=== PATIENT | male | born 1995 | race Caucasian/White ===

== ENCOUNTER 2017-11-22 18:07 | Emergency (ER) | payer BC ==
[~2017-11-22 18:07] MED LIST: ISOVUE-370 76%-LOCM 1 ML ONE
[2017-11-22 18:27] LABS: Bilirubin Negative (Negative); Blood, Urine Negative (Negative); Clarity CLEAR (Clear); Glucose, Urine (Dipstick) Negative (Negative); Leukocyte Negative (Negative); Nitrite Negative (Negative); Protein, Urine (Dipstick) Negative (Neg-Trace); Specific Gravity, Urine 1.021 (1.002-1.036); Urobilinogen 0.2 mg/dL (0.2-1.0)
[2017-11-22 18:49] LABS: #Basophils 0.1 thou/uL (0.0-0.2); #Eosinphils 0.1 thou/uL (0.0-0.7); #Lymphocytes 3.2 thou/uL (1.20-3.40); #Monocytes 0.5 thou/uL (0.11-0.59); #Neutrophils 4.2 thou/uL (1.40-6.50); %Basophils 0.7 % (0.0-1.0); %Eosinophils 0.9 % (0.0-10.0); %Monocytes 5.8 % (0.0-4.0); %Neutrophils 52.7 % (31.0-61.0); Hemoglobin 15.7 g/dL (14.0-18.0); Mean Corpuscular HGB CONC 33.7 g/dL (32.0-36.0); Mean Corpuscular Hemoglobin 30.3 pg (25.0-35.0); Mean Corpuscular Volume 89.9 fl (77.0-87.0); Mean Platelet Volume 7.1 fL (7.4-10.4); Platelet Count 207 thou/uL (130-400); RBC Distribution Width 11.9 % (11.5-14.5); Red Blood Cell (RBC) Count 5.19 mill/uL (4.00-5.20); White Blood Cell (WBC) Count 7.9 thou/uL (4.8-10.8)
[2017-11-22 19:13] LABS: ALT (SGPT) 21 U/L (8-55); AST (SGOT) 16 U/L (10-45); Albumin 4.4 g/dL (3.5-5.0); Alkaline Phosphatase 78 U/L (Less than 750); Anion Gap 6 mmol/L (10-20); BUN (Urea Nitrogen) 22 mg/dL (8.4-21.0); Bilirubin, Total 0.5 mg/dL (0.2-1.2); Calc. Creatinine Clearance 0 mL/min (70-130); Calcium 9.2 mg/dL (7.8-10.44); Carbon Dioxide 31 mmol/L (22-29); Chloride 105 mmol/L (98-107); Estimated GFR-MDRD 71; Globulin 2.6 g/dL (2.4-3.5); Glucose 98 mg/dL (70-105); Lipase 43 U/L (8-78); Potassium 4.1 mmol/L (3.5-5.1); Sodium 138 mmol/L (136-145)
--- NOTE | 2017-11-22 20:07 | CT ---
CT ABDOMEN AND PELVIS WITH CONTRAST 11/22/17 Multiple axial tomograms obtained through the abdomen and pelvis with IV enhancement. HISTORY: Right lower quadrant abdominal pain. Lung bases are clear. The liver, spleen, and pancreas are unremarkable. Adrenal glands and kidneys un remarkable. No hydronephrosis. Urinary bladder unremarkable. Small bowel loops normal caliber. Appendix appears normal. Stool throughout the colon. No adenopathy identified. IMPRESSION: No evidence of acute abnormality. POS: [facility]
== END 2017-11-22 20:19 | disposition home or self-care (01) ==
LOC: ERS 18:07
DX: R10.31 Right lower quadrant pain (principal)
CPT/HCPCS: 36415; 74177; 80053; 81003; 83690; 85025